=== PATIENT | male | born 1990 | race Caucasian/White ===

== ENCOUNTER 2016-08-05 12:35 | Inpatient (IN) | payer SELFPAY ==
[~2016-08-05] VITALS: Ht 185.4 cm; Wt 92.4 kg
[~2016-08-05 12:35] MED LIST: MOTRIN600 MG PO; MOTRIN800 MG PO; NAPROSYN500 MG PO; NOHOMEMEDS; PEN-VEE K,VEET500 MG PO; PERCOCET 5/31 TABLET PO; VALIUM5 MG PO
[2016-08-05 12:53] LABS: HEMATOCRIT 46.3 % (38.0-50.0); MCH 31.3 PG (29.0-34.0); MCHC 33.9 G/DL (30.0-36.0); MCV 92.4 FL (86-99); MEAN PLAT.VOLUME 11.5 uM^3 (9.0-12.4); PLATELET COUNT 198 K/uL (156-360); RBC DIS.WIDTH-CV 12.8 % (11.8-14.6); RBC DIS.WIDTH-SD 43.8 % (39-53); RED BLOOD COUNT 5.01 M/uL (4.00-5.50)
[2016-08-05 13:04] LABS: CHLORIDE 103 mEq/L (99-109); POTASSIUM 4.2 mEq/L (3.7-5.4); SODIUM 141 mEq/L (136-147)
[2016-08-05 13:06] LABS: GLUCOSE 109 mg/dL (70-99)
[2016-08-05 13:07] LABS: ANION GAP 11 MEQ/L (2-14)
[2016-08-05 13:09] LABS: GFR ESTIMATE (CALCULATED) > 59 mL/min/
[2016-08-05 13:10] LABS: UREA NITROGEN (BUN) 10 mg/dL (9-23)
[2016-08-05 13:14] LABS: TROP-I INTERPRETATION NEGATIVE; TROPONIN-I < 0.01 ng/mL (0.0-0.30)
[2016-08-05 13:50] LABS: AMYLASE 296 IU/L (1-118)
[2016-08-05 13:54] LABS: TOTAL BILIRUBIN 0.6 mg/dL (0.0-1.0)
[2016-08-05 13:55] LABS: ALKALINE PHOSPHATASE 154 IU/L (3-129)
[2016-08-05 13:58] LABS: DIRECT BILIRUBIN 0.3 mg/dL (0.0-0.3)
[2016-08-05 13:59] LABS: LIPASE 378 U/L (1.0-51.0)
[2016-08-05 20:12] VITALS: BP 145/95
[2016-08-06] VITALS: BP 154/98
[2016-08-06 07:57] LABS: ALKALINE PHOSPHATASE 104 IU/L (3-129); ANION GAP 12 MEQ/L (2-14); CHLORIDE 100 MEQ/L (99-109); GFR ESTIMATE (CALCULATED) > 59 mL/min/; GLUCOSE 133 mg/dL (70-99); SAMPLE HEMOLYSIS CHECK 0; SAMPLE ICTERIC CHECK 0; SAMPLE LIPEMIA CHECK 0; SODIUM 137 MEQ/L (136-147); TOTAL BILIRUBIN 1.1 MG/DL (0.0-1.0); UREA NITROGEN (BUN) 10 mg/dL (9-23)
[2016-08-06 08:00] LABS: EOSINOPHIL (%) 0 % (0-5); IMMATURE GRANULOCYTE (%) 0.3 % (0.0-0.7); INSTRUMENT ABS NEUTROPHIL CT 8.5 K/uL; LYMPHOCYTE COUNT 0.5 K/uL (1.0-2.8); MCH 31.4 PG (29.0-34.0); MCHC 33.3 G/DL (30.0-36.0); MCV 94.3 FL (86-99); MEAN PLAT.VOLUME 12.2 uM^3 (9.0-12.4); MONOCYTE (%) 8.9 % (3-12); MONOCYTE COUNT 0.9 K/uL (0-0.8); NEUTROPHIL (%) 86.1 % (45-76); NEUTROPHIL COUNT 8.5 K/uL (1.8-6.4); PLATELET COUNT 158 K/uL (156-360); RBC DIS.WIDTH-CV 13.2 % (11.8-14.6); RBC DIS.WIDTH-SD 45.7 % (39-53); RED BLOOD COUNT 4.56 M/uL (4.00-5.50)
[2016-08-06 08:02] LABS: WHITE BLOOD COUNT 9.9 K/uL (4.1-10.2)
[2016-08-06 08:23] VITALS: BP 153/104
[2016-08-06 13:54] VITALS: BP 152/98
[2016-08-06 15:08] VITALS: BP 150/98
[2016-08-07] VITALS: BP 152/90
[2016-08-07 08:17] LABS: ALKALINE PHOSPHATASE 88 IU/L (3-129); ANION GAP 9 MEQ/L (2-14); CHLORIDE 100 MEQ/L (99-109); GFR ESTIMATE (CALCULATED) > 59 mL/min/; GLUCOSE 104 mg/dL (70-99); POTASSIUM 3.9 MEQ/L (3.7-5.4); SAMPLE HEMOLYSIS CHECK 0; SAMPLE ICTERIC CHECK 0; SAMPLE LIPEMIA CHECK 0; SODIUM 136 MEQ/L (136-147); TOTAL BILIRUBIN 1.7 MG/DL (0.0-1.0); UREA NITROGEN (BUN) 11 mg/dL (9-23)
[2016-08-07 08:32] VITALS: BP 145/89
[2016-08-07 15:53] VITALS: BP 154/88
[2016-08-08] VITALS: BP 136/82
[2016-08-08 07:27] LABS: HEMATOCRIT 40.6 % (38.0-50.0); MCH 31.1 PG (29.0-34.0); MCHC 32.3 G/DL (30.0-36.0); MCV 96.4 FL (86-99); MEAN PLAT.VOLUME 12.3 uM^3 (9.0-12.4); PLATELET COUNT 130 K/uL (156-360); RBC DIS.WIDTH-CV 12.9 % (11.8-14.6); RBC DIS.WIDTH-SD 46.2 % (39-53); RED BLOOD COUNT 4.21 M/uL (4.00-5.50); WHITE BLOOD COUNT 9.9 K/uL (4.1-10.2)
[2016-08-08 07:47] LABS: ALKALINE PHOSPHATASE 85 IU/L (3-129); AMYLASE 145 IU/L (1-118); ANION GAP 9 MEQ/L (2-14); CHLORIDE 101 MEQ/L (99-109); GFR ESTIMATE (CALCULATED) > 59 mL/min/; GLUCOSE 90 mg/dL (70-99); SAMPLE HEMOLYSIS CHECK 0; SAMPLE ICTERIC CHECK 0; SAMPLE LIPEMIA CHECK 0; SODIUM 136 MEQ/L (136-147); UREA NITROGEN (BUN) 13 mg/dL (9-23)
[2016-08-08 07:48] LABS: TOTAL BILIRUBIN 1.1 MG/DL (0.0-1.0)
[2016-08-08 07:52] VITALS: BP 141/88
[2016-08-08 07:59] LABS: EOSINOPHIL (%) 0.1 % (0-5); IMMATURE GRANULOCYTE (%) 0.8 % (0.0-0.7); IMMATURE GRANULOCYTE COUNT 0.1 K/uL; INSTRUMENT ABS NEUTROPHIL CT 7.6 K/uL; LYMPHOCYTE COUNT 0.8 K/uL (1.0-2.8); MONOCYTE (%) 13.7 % (3-12); MONOCYTE COUNT 1.4 K/uL (0-0.8); NEUTROPHIL (%) 76.8 % (45-76); NEUTROPHIL COUNT 7.6 K/uL (1.8-6.4); PLAT.SUFFICIENCY DECREASED
[2016-08-08 14:17] VITALS: BP 139/89
[2016-08-09 00:16] VITALS: BP 135/84
[2016-08-09 07:04] LABS: EOSINOPHIL (%) 0.9 % (0-5); EOSINOPHIL COUNT 0.1 K/uL (0-0.3); HEMATOCRIT 38.4 % (38.0-50.0); IMMATURE GRANULOCYTE (%) 1.4 % (0.0-0.7); IMMATURE GRANULOCYTE COUNT 0.1 K/uL; INSTRUMENT ABS NEUTROPHIL CT 6.1 K/uL; LYMPHOCYTE COUNT 0.9 K/uL (1.0-2.8); MCH 31.6 PG (29.0-34.0); MCHC 32.6 G/DL (30.0-36.0); MEAN PLAT.VOLUME 12.1 uM^3 (9.0-12.4); MONOCYTE (%) 15.1 % (3-12); MONOCYTE COUNT 1.3 K/uL (0-0.8); NEUTROPHIL (%) 71.9 % (45-76); NEUTROPHIL COUNT 6.1 K/uL (1.8-6.4); PLATELET COUNT 162 K/uL (156-360); RBC DIS.WIDTH-CV 12.9 % (11.8-14.6); RBC DIS.WIDTH-SD 46.3 % (39-53); RED BLOOD COUNT 3.96 M/uL (4.00-5.50); WHITE BLOOD COUNT 8.5 K/uL (4.1-10.2)
[2016-08-09 07:28] LABS: ALKALINE PHOSPHATASE 91 IU/L (3-129); AMYLASE 145 IU/L (1-118); ANION GAP 10 MEQ/L (2-14); CHLORIDE 102 MEQ/L (99-109); GFR ESTIMATE (CALCULATED) > 59 mL/min/; GLUCOSE 77 mg/dL (70-99); POTASSIUM 3.7 MEQ/L (3.7-5.4); SAMPLE HEMOLYSIS CHECK 0; SAMPLE ICTERIC CHECK 0; SAMPLE LIPEMIA CHECK 0; SODIUM 136 MEQ/L (136-147); UREA NITROGEN (BUN) 11 mg/dL (9-23)
[2016-08-09 07:30] LABS: TOTAL BILIRUBIN 0.7 MG/DL (0.0-1.0)
[2016-08-09 07:52] VITALS: BP 148/95
[2016-08-09 16:01] VITALS: BP 141/85
[2016-08-10 00:10] VITALS: BP 127/80
[2016-08-10 07:30] LABS: BASOPHIL COUNT 0.1 K/uL (0-0.1); EOSINOPHIL (%) 0.8 % (0-5); EOSINOPHIL COUNT 0.1 K/uL (0-0.3); HEMATOCRIT 36.6 % (38.0-50.0); IMMATURE GRANULOCYTE (%) 1.9 % (0.0-0.7); IMMATURE GRANULOCYTE COUNT 0.2 K/uL; INSTRUMENT ABS NEUTROPHIL CT 7.5 K/uL; LYMPHOCYTE COUNT 1.1 K/uL (1.0-2.8); MCH 31.3 PG (29.0-34.0); MCHC 32.8 G/DL (30.0-36.0); MCV 95.6 FL (86-99); MEAN PLAT.VOLUME 11.8 uM^3 (9.0-12.4); MONOCYTE (%) 17.7 % (3-12); MONOCYTE COUNT 1.9 K/uL (0-0.8); NEUTROPHIL (%) 68.8 % (45-76); NEUTROPHIL COUNT 7.5 K/uL (1.8-6.4); PLATELET COUNT 204 K/uL (156-360); RBC DIS.WIDTH-CV 12.9 % (11.8-14.6); RED BLOOD COUNT 3.83 M/uL (4.00-5.50); WHITE BLOOD COUNT 10.9 K/uL (4.1-10.2)
[2016-08-10 07:35] VITALS: BP 135/86
[2016-08-10 07:59] LABS: AMYLASE 173 IU/L (1-118); ANION GAP 12 MEQ/L (2-14); CHLORIDE 103 MEQ/L (99-109); GFR ESTIMATE (CALCULATED) > 59 mL/min/; GLUCOSE 73 mg/dL (70-99); POTASSIUM 3.5 MEQ/L (3.7-5.4); SAMPLE HEMOLYSIS CHECK 0; SAMPLE ICTERIC CHECK 0; SAMPLE LIPEMIA CHECK 0; SODIUM 138 MEQ/L (136-147); TRIGLYCERIDES 200 MG/DL (Normal: <150); UREA NITROGEN (BUN) 9 mg/dL (9-23)
[2016-08-10 15:51] VITALS: BP 141/87
[2016-08-10 23:46] VITALS: BP 148/79
[2016-08-11 07:28] LABS: AMYLASE 197 IU/L (1-118); ANION GAP 9 MEQ/L (2-14); CHLORIDE 103 MEQ/L (99-109); GFR ESTIMATE (CALCULATED) > 59 mL/min/; GLUCOSE 85 mg/dL (70-99); POTASSIUM 3.1 MEQ/L (3.7-5.4); SAMPLE HEMOLYSIS CHECK 0; SAMPLE ICTERIC CHECK 0; SAMPLE LIPEMIA CHECK 0; SODIUM 137 MEQ/L (136-147); TOTAL BILIRUBIN 0.7 MG/DL (0.0-1.0); UREA NITROGEN (BUN) 7 mg/dL (9-23)
[2016-08-11 07:40] LABS: ALKALINE PHOSPHATASE 158 IU/L (3-129)
[2016-08-11 08:52] VITALS: BP 147/96
[2016-08-11 17:14] VITALS: BP 141/92
[2016-08-12] VITALS: BP 150/103
[2016-08-12 04:46] LABS: C DIFF TOXIN NEGATIVE (NEGATIVE)
[2016-08-12 04:49] LABS: PROBE CHECK PASS; SPECIMEN PROCESSING CONTROL PASS
[2016-08-12 07:57] VITALS: BP 138/83
[2016-08-12 07:59] LABS: HEMATOCRIT 37.3 % (38.0-50.0); MCH 31.1 PG (29.0-34.0); MCV 94.4 FL (86-99); MEAN PLAT.VOLUME 11.2 uM^3 (9.0-12.4); PLATELET COUNT 285 K/uL (156-360); RBC DIS.WIDTH-CV 12.9 % (11.8-14.6); RBC DIS.WIDTH-SD 44.8 % (39-53); RED BLOOD COUNT 3.95 M/uL (4.00-5.50); WHITE BLOOD COUNT 11.9 K/uL (4.1-10.2)
[2016-08-12 08:12] LABS: ALKALINE PHOSPHATASE 169 IU/L (3-129); ANION GAP 14 MEQ/L (2-14); CHLORIDE 103 MEQ/L (99-109); GFR ESTIMATE (CALCULATED) > 59 mL/min/; GLUCOSE 83 mg/dL (70-99); LIPASE 149 U/L (1.0-51.0); MAGNESIUM 1.9 mg/dl (1.3-2.7); POTASSIUM 3.7 MEQ/L (3.7-5.4); SAMPLE HEMOLYSIS CHECK 0; SAMPLE ICTERIC CHECK 0; SAMPLE LIPEMIA CHECK 0; SODIUM 140 MEQ/L (136-147); TOTAL BILIRUBIN 0.6 MG/DL (0.0-1.0); UREA NITROGEN (BUN) 6 mg/dL (9-23)
[2016-08-12 09:18] LABS: ABS NEUTROPHIL COUNT 9.4; BAND NEUTROPHILS 1.8 % (0-8.0); EOSINOPHIL ABS CT 0; INSTRUMENT ABS NEUTROPHIL CT 7.4 K/uL; LYMPHOCYTES 8.1 % (15.0-45.0); MYELOCYTES 1.8 %; PLAT.SUFFICIENCY ADEQUATE; POLYCHROMASIA 1+; SEG.NEUTROPHILS 77.5 % (46.0-76.0)
[2016-08-12 11:19] VITALS: BP 148/92
[2016-08-12 14:59] VITALS: BP 142/88
[2016-08-13 00:19] VITALS: BP 130/72
[2016-08-13 07:37] VITALS: BP 132/72
[2016-08-13 08:35] LABS: ALKALINE PHOSPHATASE 170 IU/L (3-129); AMYLASE 194 IU/L (1-118); ANION GAP 17 MEQ/L (2-14); CHLORIDE 104 MEQ/L (99-109); GFR ESTIMATE (CALCULATED) > 59 mL/min/; GLUCOSE 81 mg/dL (70-99); LIPASE 155 U/L (1.0-51.0); POTASSIUM 4.1 MEQ/L (3.7-5.4); SAMPLE HEMOLYSIS CHECK 0; SAMPLE ICTERIC CHECK 0; SAMPLE LIPEMIA CHECK 0; SODIUM 142 MEQ/L (136-147); TOTAL BILIRUBIN 0.6 MG/DL (0.0-1.0); UREA NITROGEN (BUN) 8 mg/dL (9-23)
[2016-08-13 11:02] VITALS: BP 139/86
[2016-08-13 15:07] VITALS: BP 120/67
[2016-08-14 00:12] VITALS: BP 106/68
[2016-08-14 07:36] LABS: AMYLASE 156 IU/L (1-118); LIPASE 143 U/L (1.0-51.0)
[2016-08-14 08:05] VITALS: BP 107/68
[2016-08-14 16:14] VITALS: BP 119/71
[2016-08-14 23:43] VITALS: BP 130/79
[2016-08-15 07:39] VITALS: BP 138/87
[2016-08-15 17:10] VITALS: BP 131/82
[2016-08-16 00:26] VITALS: BP 152/94
[2016-08-16 07:45] LABS: HEMATOCRIT 36.7 % (38.0-50.0); MCH 30.9 PG (29.0-34.0); MCHC 32.2 G/DL (30.0-36.0); MCV 96.1 FL (86-99); MEAN PLAT.VOLUME 11.6 uM^3 (9.0-12.4); RBC DIS.WIDTH-CV 13.1 % (11.8-14.6); RBC DIS.WIDTH-SD 46.4 % (39-53); RED BLOOD COUNT 3.82 M/uL (4.00-5.50)
[2016-08-16 07:49] LABS: PLATELET COUNT 384 K/uL (156-360); WHITE BLOOD COUNT 7.2 K/uL (4.1-10.2)
[2016-08-16 07:52] VITALS: BP 120/79
[2016-08-16 07:52] LABS: ALKALINE PHOSPHATASE 130 IU/L (3-129); ANION GAP 7 MEQ/L (2-14); CHLORIDE 102 MEQ/L (99-109); GFR ESTIMATE (CALCULATED) > 59 mL/min/; GLUCOSE 98 mg/dL (70-99); LIPASE 89 U/L (1.0-51.0); POTASSIUM 3.9 MEQ/L (3.7-5.4); SAMPLE HEMOLYSIS CHECK 0; SAMPLE ICTERIC CHECK 0; SAMPLE LIPEMIA CHECK 0; SODIUM 141 MEQ/L (136-147); UREA NITROGEN (BUN) 4 mg/dL (9-23)
[2016-08-16 07:53] LABS: TOTAL BILIRUBIN 0.4 MG/DL (0.0-1.0)
[2016-08-16 11:40] VITALS: BP 127/87
[2016-08-16] MEDS ORDERED: ENDOCET 5-3251 EACH PO (12:21)
[2016-08-16] MEDS ORDERED: Thiamine,Vitamin B1 PO (12:21)
== END 2016-08-16 14:55 | disposition home or self-care (01) | DRG 439 ==
LOC: EME 12:35 → RME 12:35 → EDOF 18:45 → 5SOUTH 18:45
PROVIDERS: Hospitalist; Internal Medicine; Internal Medicine Gastroenterology; Specialist
DX: K85.20 Alcohol induced acute pancreatitis without necrosis or infection (principal); F10.239 Alcohol dependence with withdrawal, unspecified; J90 Pleural effusion, not elsewhere classified; K70.10 Alcoholic hepatitis without ascites; K76.0 Fatty (change of) liver, not elsewhere classified; R03.0 Elevated blood-pressure reading, without diagnosis of hypertension; E66.9 Obesity, unspecified; L81.8 Other specified disorders of pigmentation; E87.6 Hypokalemia; R19.7 Diarrhea, unspecified; Z68.26 Body mass index [BMI] 26.0-26.9, adult
CPT/HCPCS: 71020; 74177; 74183; 76705; 80048; 80053; 80076; 82150; 82150 91; 83690; 83735; 84478; 84484; 85025; 85027; 86140; 87493; 93005; 99281; 99285; C9113; J1170; J1650; J2060; J2270; J2405; J3010; J3411; J3480; J7030; J7050; S0028

== ENCOUNTER 2016-09-01 23:44 | Emergency (ER) | payer SELFPAY ==
[~2016-09-01] VITALS: Ht 185.4 cm; Wt 89.2 kg
[~2016-09-01 23:44] MED LIST changes: +ENDOCET 5-3251 EACH PO; +Thiamine,Vitamin B1 PO
[2016-09-02 01:25] LABS: HEMATOCRIT 39.8 % (38.0-50.0); MCHC 32.7 G/DL (30.0-36.0); MCV 94.8 FL (86-99); RBC DIS.WIDTH-CV 12.7 % (11.8-14.6); RBC DIS.WIDTH-SD 44.6 % (39-53); WHITE BLOOD COUNT 9.9 K/uL (4.1-10.2)
[2016-09-02 02:14] LABS: CHLORIDE 106 mEq/L (99-109); POTASSIUM 4.3 mEq/L (3.7-5.4); SODIUM 139 mEq/L (136-147)
[2016-09-02 02:16] LABS: GLUCOSE 97 mg/dL (70-99)
[2016-09-02 02:17] LABS: ANION GAP 13 MEQ/L (2-14)
[2016-09-02 02:19] LABS: SERUM ETHYL ALCOHOL 159 mg/dL
[2016-09-02 02:20] LABS: GFR ESTIMATE (CALCULATED) > 59 mL/min/; UREA NITROGEN (BUN) 6 mg/dL (9-23)
[2016-09-02 02:47] LABS: MEAN PLAT.VOLUME 11.5 uM^3 (9.0-12.4); PLATELET CLUMPS PRESENT - PLATELET COUNT APPEARS ADQ.
[2016-09-02 02:51] LABS: PLATELET COUNT UNABLE TO REPORT K/uL (156-360)
[2016-09-02 03:51] VITALS: BP 112/72
== END 2016-09-02 03:52 | disposition home or self-care (01) ==
LOC: EME → EDBD 23:44 → EME 23:44
PROVIDERS: Emergency Medicine
DX: F10.129 Alcohol abuse with intoxication, unspecified (principal); Y90.6 Blood alcohol level of 120-199 mg/100 ml
CPT/HCPCS: 71010; 80048; 85027; 93005; 99281; 99285; G0480; J2310

== ENCOUNTER 2017-03-07 06:20 | Emergency (ER) | payer SELFPAY ==
[~2017-03-07] VITALS: Ht 185.4 cm; Wt 96.3 kg
[2017-03-07 08:04] VITALS: BP 132/97
[2017-03-11] MEDS ORDERED: TYLENOL EXTRA500 MG PO (19:58)
== END 2017-03-07 08:06 | disposition home or self-care (01) ==
LOC: EME 06:20
DX: S67.21XA Crushing injury of right hand, initial encounter (principal); S60.221A Contusion of right hand, initial encounter; W20.8XXA Other cause of strike by thrown, projected or falling object, initial encounter
CPT/HCPCS: 73130; 99281; 99283

== ENCOUNTER 2017-09-03 18:11 | Inpatient (IN) | payer OTHER ==
[~2017-09-03] VITALS: Ht 182.9 cm; Wt 90.7 kg
[~2017-09-03 18:11] MED LIST changes: +FOLIC ACID1 MG PO; +OXYCODONE HCL5 MG PO; +THERAGRAN1 TABLET PO; +THIAMINE HCL100 MG PO; +TYLENOL EXTRA500 MG PO
[2017-09-03 18:59] LABS: HEMATOCRIT 42.2 % (38.0-50.0); HEMOGLOBIN 14.7 G/DL (12.5-16.6); MCH 32.5 PG (29.0-34.0); MCHC 34.8 G/DL (30.0-36.0); MCV 93.4 FL (86-99); PLATELET COUNT 196 K/uL (156-360); RBC DIS.WIDTH-SD 41.3 % (39-53); RED BLOOD COUNT 4.52 M/uL (4.00-5.50); WHITE BLOOD COUNT 9.1 K/uL (4.1-10.2)
[2017-09-03 19:14] LABS: ALBUMIN 4.1 g/dL (3.2-4.8); CHLORIDE 103 mEq/L (99-109); POTASSIUM 4.1 mEq/L (3.7-5.4); SODIUM 138 mEq/L (136-147)
[2017-09-03 19:16] LABS: GLUCOSE 95 mg/dL (70-99); TOTAL PROTEIN 6.6 g/dL (6.4-8.3)
[2017-09-03 19:18] LABS: TOTAL BILIRUBIN 0.7 mg/dL (0.0-1.0)
[2017-09-03 19:19] LABS: SERUM ETHYL ALCOHOL 38 mg/dL
[2017-09-03 19:20] LABS: ALKALINE PHOSPHATASE 80 IU/L (3-129); GFR ESTIMATE (CALCULATED) > 59 mL/min/ (58.99-99999)
[2017-09-03 19:21] LABS: AST (GOT) 63 IU/L (2-34); UREA NITROGEN (BUN) 8 mg/dL (9-23)
[2017-09-03 19:23] LABS: ALT (GPT) 75 IU/L (3-49); LIPASE 315 U/L (1.0-51.0)
[2017-09-03 21:09] LABS: APPEARANCE CLEAR ((CLEAR)); BILIRUBIN NEGATIVE; BLOOD NEGATIVE; COLOR YELLOW ((YELLOW)); GLUCOSE (STRIP) NEGATIVE; KETONES 20; LEUKOCYTES NEGATIVE; NITRITE NEGATIVE; PROTEIN (STRIP) NEGATIVE; SPECIFIC GRAVITY 1.033 (1.000-1.030); UCUL ADDED? NO; UROBILINOGEN 0.2 MG/DL (0.2-1.0)
[2017-09-03 21:51] LABS: MAGNESIUM 1.9 mg/dL (1.3-2.7)
[2017-09-03 22:20] VITALS: BP 147/78
[2017-09-03 23:38] VITALS: BP 144/92
[2017-09-04 06:38] LABS: BASOPHIL (%) 0.8 % (0-1); BASOPHIL COUNT 0.1 K/uL (0-0.1); EOSINOPHIL (%) 0.9 % (0-5); EOSINOPHIL COUNT 0.1 K/uL (0-0.3); HEMATOCRIT 40.9 % (38.0-50.0); IMMATURE GRANULOCYTE (%) 0.3 % (0.0-0.7); LYMPHOCYTE (%) 19.6 % (15-42); LYMPHOCYTE COUNT 1.3 K/uL (1.0-2.8); MCH 32.5 PG (29.0-34.0); MCHC 34.2 G/DL (30.0-36.0); MCV 94.9 FL (86-99); MONOCYTE (%) 12.2 % (3-12); MONOCYTE COUNT 0.8 K/uL (0-0.8); NEUTROPHIL (%) 66.2 % (45-76); NEUTROPHIL COUNT 4.4 K/uL (1.8-6.4); PLATELET COUNT 156 K/uL (156-360); RBC DIS.WIDTH-SD 41.9 % (39-53); RED BLOOD COUNT 4.31 M/uL (4.00-5.50); WHITE BLOOD COUNT 6.6 K/uL (4.1-10.2)
[2017-09-04 06:49] LABS: ALBUMIN 3.6 G/DL (3.2-4.8); ALKALINE PHOSPHATASE 61 IU/L (3-129); ALT (GPT) 52 IU/L (3-49); AST (GOT) 49 IU/L (2-34); CHLORIDE 103 MEQ/L (99-109); CREATININE 0.8 MG/DL (0.6-1.3); GFR ESTIMATE (CALCULATED) > 59 mL/min/ (58.99-99999); GLUCOSE 77 mg/dL (70-99); POTASSIUM 3.9 MEQ/L (3.7-5.4); SODIUM 136 MEQ/L (136-147); TOTAL PROTEIN 5.6 G/DL (6.4-8.3); UREA NITROGEN (BUN) 7 mg/dL (9-23)
[2017-09-04 07:46] VITALS: BP 123/74
[2017-09-04 15:21] VITALS: BP 133/91
[2017-09-04 23:34] VITALS: BP 132/77
[2017-09-05 06:05] LABS: HEMATOCRIT 41.3 % (38.0-50.0); HEMOGLOBIN 14.2 G/DL (12.5-16.6); MCH 32.2 PG (29.0-34.0); MCHC 34.4 G/DL (30.0-36.0); MCV 93.7 FL (86-99); PLATELET COUNT 156 K/uL (156-360); RBC DIS.WIDTH-CV 11.8 % (11.8-14.6); RBC DIS.WIDTH-SD 40.7 % (39-53); RED BLOOD COUNT 4.41 M/uL (4.00-5.50); WHITE BLOOD COUNT 4.9 K/uL (4.1-10.2)
[2017-09-05 06:36] LABS: CHLORIDE 101 MEQ/L (99-109); CREATININE 0.8 MG/DL (0.6-1.3); GFR ESTIMATE (CALCULATED) > 59 mL/min/ (58.99-99999); GLUCOSE 61 mg/dL (70-99); POTASSIUM 4.3 MEQ/L (3.7-5.4); SODIUM 134 MEQ/L (136-147); UREA NITROGEN (BUN) 8 mg/dL (9-23)
[2017-09-05 08:00] VITALS: BP 137/84
[2017-09-05 15:47] VITALS: BP 187/87
[2017-09-06] VITALS: BP 107/63
[2017-09-06 06:43] LABS: HEMATOCRIT 41.4 % (38.0-50.0); HEMOGLOBIN 13.8 G/DL (12.5-16.6); MCH 31.8 PG (29.0-34.0); MCHC 33.3 G/DL (30.0-36.0); MCV 95.4 FL (86-99); PLATELET COUNT 175 K/uL (156-360); RBC DIS.WIDTH-SD 42.2 % (39-53); RED BLOOD COUNT 4.34 M/uL (4.00-5.50); WHITE BLOOD COUNT 4.1 K/uL (4.1-10.2)
[2017-09-06 07:05] LABS: CHLORIDE 106 MEQ/L (99-109); CREATININE 0.9 MG/DL (0.6-1.3); GFR ESTIMATE (CALCULATED) > 59 mL/min/ (58.99-99999); GLUCOSE 92 mg/dL (70-99); POTASSIUM 4.2 MEQ/L (3.7-5.4); SODIUM 139 MEQ/L (136-147); UREA NITROGEN (BUN) 4 mg/dL (9-23)
[2017-09-06 07:25] VITALS: BP 121/76
[2017-09-06] MEDS ORDERED: HYDROCODON-ACE1 EAC7 PO (14:32)
[2017-09-06] MEDS ORDERED: ACID CONTROLLER20 MG PO (14:32)
[2017-09-06] MEDS ORDERED: ZOFRAN ODT4 MG PO (14:33)
== END 2017-09-06 15:36 | disposition home or self-care (01) | DRG 439 ==
LOC: EME 18:11 → EDOF 21:25 → 5SOUTH 21:25 → ENRESERV 21:26 → 5SOUTH 22:21 → ENPENDDIS 09-06 14:34 → 5SOUTH 09-06 15:36
PROVIDERS: Physician Assistant; Physician Assistant Medical; Student in an Organized Health Care Education/Training Program
DX: K85.20 Alcohol induced acute pancreatitis without necrosis or infection (principal); F10.239 Alcohol dependence with withdrawal, unspecified; R74.0 Nonspecific elevation of levels of transaminase and lactic acid dehydrogenase [LDH]; R74.8 Abnormal levels of other serum enzymes; R79.89 Other specified abnormal findings of blood chemistry; Y90.1 Blood alcohol level of 20-39 mg/100 ml; F10.229 Alcohol dependence with intoxication, unspecified; I10 Essential (primary) hypertension; Z82.49 Family history of ischemic heart disease and other diseases of the circulatory system
CPT/HCPCS: 74177; 80048; 80053; 81003; 83690; 83735; 85025; 85027; 99281; 99285; C9113; G0480; J1170; J1650; J2405; J3010; J3411; J3475; J7030

== ENCOUNTER 2017-10-29 09:11 | Inpatient (IN) | payer OTHER ==
[~2017-10-29] VITALS: Ht 185.4 cm; Wt 103.9 kg
[~2017-10-29 09:11] MED LIST changes: +ACID CONTROLLER20 MG PO; +HYDROCODON-ACE1 EAC7 PO; +ZOFRAN ODT4 MG PO
[2017-10-29 09:56] LABS: BASOPHIL (%) 0.5 % (0-1); BASOPHIL COUNT 0.1 K/uL (0-0.1); EOSINOPHIL (%) 0.9 % (0-5); EOSINOPHIL COUNT 0.1 K/uL (0-0.3); HEMATOCRIT 45.8 % (38.0-50.0); IMMATURE GRANULOCYTE (%) 0.4 % (0.0-0.7); LYMPHOCYTE (%) 9.9 % (15-42); LYMPHOCYTE COUNT 1.2 K/uL (1.0-2.8); MCH 32.2 PG (29.0-34.0); MCHC 34.9 G/DL (30.0-36.0); MCV 92.2 FL (86-99); MONOCYTE (%) 6.6 % (3-12); MONOCYTE COUNT 0.8 K/uL (0-0.8); NEUTROPHIL (%) 81.7 % (45-76); NEUTROPHIL COUNT 9.5 K/uL (1.8-6.4); PLATELET COUNT 229 K/uL (156-360); RBC DIS.WIDTH-CV 12.1 % (11.8-14.6); RBC DIS.WIDTH-SD 41.3 % (39-53); RED BLOOD COUNT 4.97 M/uL (4.00-5.50); WHITE BLOOD COUNT 11.6 K/uL (4.1-10.2)
[2017-10-29 10:04] LABS: ALBUMIN 4.5 g/dL (3.2-4.8)
[2017-10-29 10:05] LABS: CHLORIDE 102 mEq/L (99-109); POTASSIUM 4.1 mEq/L (3.7-5.4); SODIUM 140 mEq/L (136-147)
[2017-10-29 10:07] LABS: GLUCOSE 131 mg/dL (70-99); TOTAL PROTEIN 7.7 g/dL (6.4-8.3)
[2017-10-29 10:09] LABS: TOTAL BILIRUBIN 0.9 mg/dL (0.0-1.0)
[2017-10-29 10:10] LABS: ALKALINE PHOSPHATASE 99 IU/L (3-129)
[2017-10-29 10:11] LABS: CREATININE 1.1 mg/dL (0.6-1.3); GFR ESTIMATE (CALCULATED) > 59 mL/min/ (58.99-99999)
[2017-10-29 10:12] LABS: AST (GOT) 94 IU/L (2-34); UREA NITROGEN (BUN) 9 mg/dL (9-23)
[2017-10-29 10:14] LABS: ALT (GPT) 154 IU/L (3-49); LIPASE 304 U/L (1.0-51.0)
[2017-10-29 12:36] LABS: SERUM ETHYL ALCOHOL < 10 mg/dL
[2017-10-29 15:23] VITALS: BP 138/79
[2017-10-29 19:30] VITALS: BP 152/98
[2017-10-29 23:28] VITALS: BP 143/86
[2017-10-30 04:05] VITALS: BP 127/85
[2017-10-30 07:24] VITALS: BP 114/74
[2017-10-30 07:34] LABS: HEMATOCRIT 41.2 % (38.0-50.0); MCH 31.4 PG (29.0-34.0); MCHC 33.3 G/DL (30.0-36.0); MCV 94.5 FL (86-99); PLATELET COUNT 188 K/uL (156-360); RBC DIS.WIDTH-CV 12.1 % (11.8-14.6); RBC DIS.WIDTH-SD 42.6 % (39-53); RED BLOOD COUNT 4.36 M/uL (4.00-5.50); WHITE BLOOD COUNT 6.3 K/uL (4.1-10.2)
[2017-10-30 07:37] LABS: HEMOGLOBIN 13.7 G/DL (12.5-16.6)
[2017-10-30 07:57] LABS: ALBUMIN 3.5 G/DL (3.2-4.8); ALKALINE PHOSPHATASE 70 IU/L (3-129); ALT (GPT) 77 IU/L (3-49); AST (GOT) 39 IU/L (2-34); CHLORIDE 103 MEQ/L (99-109); GFR ESTIMATE (CALCULATED) > 59 mL/min/ (58.99-99999); GLUCOSE 92 mg/dL (70-99); POTASSIUM 4.3 MEQ/L (3.7-5.4); SODIUM 139 MEQ/L (136-147); UREA NITROGEN (BUN) 9 mg/dL (9-23)
[2017-10-30 15:43] VITALS: BP 143/69
[2017-10-30 19:40] VITALS: BP 119/75
[2017-10-30 23:33] VITALS: BP 129/78
[2017-10-31 04:18] VITALS: BP 126/77
[2017-10-31 07:00] LABS: HEMATOCRIT 38.2 % (38.0-50.0); HEMOGLOBIN 12.8 G/DL (12.5-16.6); MCH 31.7 PG (29.0-34.0); MCHC 33.5 G/DL (30.0-36.0); MCV 94.6 FL (86-99); PLATELET COUNT 176 K/uL (156-360); RBC DIS.WIDTH-CV 12.1 % (11.8-14.6); RBC DIS.WIDTH-SD 42.3 % (39-53); RED BLOOD COUNT 4.04 M/uL (4.00-5.50); WHITE BLOOD COUNT 4.6 K/uL (4.1-10.2)
[2017-10-31 07:29] LABS: ALBUMIN 3.2 G/DL (3.2-4.8); ALKALINE PHOSPHATASE 83 IU/L (3-129); ALT (GPT) 74 IU/L (3-49); CHLORIDE 105 MEQ/L (99-109); CREATININE 0.9 MG/DL (0.6-1.3); GFR ESTIMATE (CALCULATED) > 59 mL/min/ (58.99-99999); GLUCOSE 98 mg/dL (70-99); MAGNESIUM 1.9 mg/dl (1.3-2.7); POTASSIUM 4.2 MEQ/L (3.7-5.4); SODIUM 140 MEQ/L (136-147); TOTAL PROTEIN 5.3 G/DL (6.4-8.3); UREA NITROGEN (BUN) 8 mg/dL (9-23)
[2017-10-31 07:31] LABS: AST (GOT) 61 IU/L (2-34); TOTAL BILIRUBIN 0.5 MG/DL (0.0-1.0)
[2017-10-31 07:49] VITALS: BP 119/73
[2017-10-31 12:34] VITALS: BP 141/97
[2017-10-31 15:09] VITALS: BP 136/86
[2017-10-31 20:07] VITALS: BP 132/75
[2017-11-01 00:11] VITALS: BP 137/93
[2017-11-01 03:54] VITALS: BP 125/86
[2017-11-01 08:17] VITALS: BP 129/84
[2017-11-01] MEDS ORDERED: FOLIC ACID1 MG PO (10:24)
[2017-11-01] MEDS ORDERED: THERAGRAN1 TABLET PO (10:24)
[2017-11-01] MEDS ORDERED: NORCO 5/3251 TABLET PO (10:24)
[2017-11-01] MEDS ORDERED: Thiamine,Vitamin B1 PO (10:24)
[2017-11-01 10:36] VITALS: BP 145/72
== END 2017-11-01 14:19 | disposition home or self-care (01) | DRG 439 ==
LOC: EME 09:11 → 3EAST 11:38 → EDOF 11:38 → ENRESERV 11:42 → 3EAST 15:16
PROVIDERS: Emergency Medicine; Internal Medicine
DX: K85.20 Alcohol induced acute pancreatitis without necrosis or infection (principal); E46 Unspecified protein-calorie malnutrition; K70.10 Alcoholic hepatitis without ascites; Y90.0 Blood alcohol level of less than 20 mg/100 ml; F43.9 Reaction to severe stress, unspecified; D72.828 Other elevated white blood cell count; Z82.49 Family history of ischemic heart disease and other diseases of the circulatory system
CPT/HCPCS: 71045; 74177; 80053; 80306 90; 83690; 83735; 85025; 85027; 99281; 99284; G0480; J1644; J1885; J2405; J3010; J7030